=== PATIENT | female | born 1995 | race Caucasian/White ===

== ENCOUNTER 2016-12-11 04:28 | Emergency (ER) | payer BC ==
[2016-12-11] MEDS ORDERED: Tetan/Diph/Pertus SYR(Tdap)* 0.5 ML SYR(BOOSTRIX) use SYR IM ONE (05:58)
[2016-12-11] MEDS ORDERED: Cephalexin CAP* 250 MG PO ONE (05:58)
[2016-12-11 06:56] VITALS: BP 117/67
--- NOTE | 2016-12-22 04:02 | ED ---
Lucian Palma Billy, scribed for Spenser Pablo MD on 12/11/16 at 0559 . Lower Extremity - HPI Summary HPI Summary: Patient is a 21 year-old female coming to [facility] after she slipped and fell down a hill. She has multiple abrasions, most notably scrapes to her right knee and posterior left thigh. Bleeding is controlled. 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 - History of Current Complaint Chief Complaint: EDExtremityLower Stated Complaint: FALL/CUTS ON RIGHT KNEE Time Seen by Provider: 12/11/16 05:54 Hx Obtained From: Patient Hx Last Menstrual Period: 10/10/14 Mechanism Of Injury: Fall From Height Of: Onset of Pain: Hours Severity Initially: Moderate Severity Currently: Moderate Pain Intensity: 6 Pain Scale Used: 0-10 Numeric Timing: Constant Location: Is Discrete @ - right knee, left posterior thigh Associated Signs And Symptoms: Positive: Negative Able to Bear Weight: Yes - Allergies/Home Medications Allergies/Adverse Reactions: Allergies Allergy/AdvReac Type Severity Reaction Status Date / Time No Known Allergies Allergy Verified 12/11/16 04:35 PMH/Surg Hx/FS Hx/Imm Hx Endocrine/Hematology History: Denies: Hx Diabetes Respiratory History: Denies: Hx Asthma Infectious Disease History: No Infectious Disease History: Denies: Traveled Outside the [place] in Last 30 Days - Family History Known Family History: Negative: Cardiac Disease, Hypertension, Diabetes - Social History Alcohol Use: Occasionally Substance Use Type: Reports: None Smoking Status (MU): Never Smoked Tobacco Review of Systems Negative: Fever Skin: Other - multiple abrasions All Other Systems Reviewed And Are Negative: Yes Physical Exam Triage Information Reviewed: Yes Vital Signs On Initial Exam: Initial Vitals Temp Pulse Resp BP Pulse Ox 98.2 F 91 14 121/81 100 12/11/16 04:32 12/11/16 04:32 12/11/16 04:32 12/11/16 04:32 12/11/16 04:32 Vital Signs Reviewed: Yes Appearance: Positive: Well-Appearing, No Pain Distress Skin: Positive: Warm, Other - abrasion to rt knee and lt thigh Head/Face: Positive: Normal Head/Face Inspection Eyes: Positive: DIO ENT: Positive: Hearing grossly normal Respiratory/Lung Sounds: Positive: Breath Sounds Present Musculoskeletal: Positive: Strength/ROM Intact Neurological: Positive: Sensory/Motor Intact, Normal Gait - Abigail Coma Scale Coma Scale Total: 15 Diagnostics - Vital Signs Vital Signs Temp Pulse Resp BP Pulse Ox 12/11/16 04:32 98.2 F 91 14 121/81 100 - Laboratory Lab Statement: Any lab studies that have been ordered have been reviewed, and results considered in the medical decision making process. Lower Extremity Course/Dx - Diagnoses Provider Diagnoses: Multiple abrasions Discharge - Discharge Plan Condition: Stable Disposition: HOME Prescriptions: Cephalexin CAP* [Keflex 250 CAP*] 250 mg PO QID #14 cap Patient Education Materials: Abrasion (ED) Referrals: [facility] [Primary Care Provider] - The documentation as recorded by the Lucian pastrana Billy accurately reflects the service I personally performed and the decisions made by me, Spenser Pablo MD.
== END 2016-12-11 06:56 | disposition home or self-care (01) ==
LOC: ED 04:28
DX: S80.211A Abrasion, right knee, initial encounter (principal); S70.312A Abrasion, left thigh, initial encounter; W01.0XXA Fall on same level from slipping, tripping and stumbling without subsequent striking against object, initial encounter; Y93.9 Activity, unspecified; Y92.9 Unspecified place or not applicable
CPT/HCPCS: 90471; 90715; 99282; A9270-GY